=== PATIENT | male | born 1965 | race Caucasian/White ===

== ENCOUNTER 2018-02-24 10:38 | Emergency (ER) | payer MEDICAID, OTHER, SELFPAY ==
[~2018-02-24] VITALS: Ht 175.3 cm; Wt 90.0 kg
[2018-02-24 10:40] VITALS: BP 124/84
== END 2018-02-24 12:17 | disposition home or self-care (01) ==
LOC: ED 12:11
DX: K40.91 Unilateral inguinal hernia, without obstruction or gangrene, recurrent (principal)
CPT/HCPCS: 99283

== ENCOUNTER → 2018-04-03 | Outpatient (CLI) | payer MEDICAID ==
[~2018-04-03] MED LIST: BUPIVACAINE/PF 0.5% ONE; EPINEPHRINE 1 MG/ML, 1ML ONE; None at this Time; VARE1TAB21 PO
== END | disposition home or self-care (01) ==
LOC: STAR 12:22 → MERGE 13:00
PROVIDERS: ATTEND Surgery
DX: Z02.9 Encounter for administrative examinations, unspecified (principal)

== ENCOUNTER 2018-04-11 09:05 | Day surgery (SDC) | payer MEDICAID ==
[~2018-04-11] VITALS: Ht 175.3 cm; Wt 97.0 kg
[~2018-04-11 09:05] MED LIST changes: -BUPIVACAINE/PF 0.5% ONE; -EPINEPHRINE 1 MG/ML, 1ML ONE
[2018-04-11] MEDS ORDERED: LACTATED RINGERS 1,000 ML IV SCH (09:33)
[2018-04-11 09:39] VITALS: BP 131/90
[2018-04-11] MEDS ORDERED: LORazepam 2 MG/ML, 1ML ONE (09:56)
[2018-04-11] MEDS ORDERED: GABAPENTIN 300 MG CAPSULE PO ONE (10:00)
[2018-04-11] MEDS ORDERED: ACETAMINOPHEN 500 MG TABLET PO ONE (10:00)
[2018-04-11] MEDS ORDERED: LORazepam 2 MG/ML, 1ML IVPush ONE (10:00)
[2018-04-11] MEDS ORDERED: FAMOTIDINE 20 MG/2 ML IVPush ONE (10:00)
[2018-04-11] MEDS ORDERED: TAMSULOSIN 0.4 MG CAP.ER.24H PO ONE (10:00)
[2018-04-11] MEDS ORDERED: FENTANYL PF 250 MCG/5ML ONE (10:25)
[2018-04-11] MEDS ORDERED: MIDAZOLAM 1 MG/ML, 2ML ONE (10:25)
[2018-04-11] MEDS ORDERED: ROCURONIUM 10 MG/ML,10ML ONE (11:08)
[2018-04-11] MEDS ORDERED: NEOSTIGMINE 1 MG/ML, 10ML ONE (11:08)
[2018-04-11] MEDS ORDERED: DEXAMETHASONE 4 MG/ML, 1ML ONE (11:08)
[2018-04-11] MEDS ORDERED: CEFAZOLIN 1,000 MG ONE (11:08)
[2018-04-11] MEDS ORDERED: GLYCOPYRROLATE 0.2MG/1ML, 5ML ONE (11:08)
[2018-04-11] MEDS ORDERED: PROPOFOL 10 MG/ML, 20ML ONE (11:08)
[2018-04-11] MEDS ORDERED: ONDANSETRON 2MG/ML, 2ML ONE (11:08)
[2018-04-11] MEDS ORDERED: BUPIVACAINE/PF 0.5% INFIL ONE (11:46)
[2018-04-11] MEDS ORDERED: EPINEPHRINE 1 MG/ML, 1ML INFIL ONE (11:46)
[2018-04-11] MEDS ORDERED: KETOROLAC 30 MG/1 ML ONE (13:29)
[2018-04-11] MEDS ORDERED: OXYcodone 5 MG/5 ML ORAL.SOL UDC ONE (13:29)
[2018-04-11] MEDS ORDERED: KETOROLAC 30 MG/1 ML IVPush PRN (13:30)
[2018-04-11] MEDS ORDERED: ONDANSETRON 2MG/ML, 2ML IVPush PRN (13:30)
[2018-04-11] MEDS ORDERED: DIPHENHYDRAMINE 50 MG/ML, 1ML IVPush PRN (13:30)
[2018-04-11] MEDS ORDERED: HYDROcodone/APAP 5/325 TABLET PO PRN (13:30)
[2018-04-11] MEDS ORDERED: ENOXAPARIN 40 MG/0.4 ML SQ SCH (13:30)
[2018-04-11] MEDS ORDERED: MORPHINE SULFATE 4 MG/ML, 1ML IVPush PRN ×2 (13:30→14:00)
[2018-04-11] MEDS ORDERED: FENTANYL PF 100 MCG/2ML ONE (13:48)
[2018-04-11] MEDS ORDERED: MORPHINE SULFATE 4 MG/ML, 1ML ONE (13:58)
[2018-04-11] MEDS ORDERED: FENTANYL PF 100 MCG/2ML IV PRN (14:00)
[2018-04-11] MEDS ORDERED: PROMETHAZINE 25 MG/ML, 1ML IV PRN (14:00)
[2018-04-11] MEDS ORDERED: ALBUTEROL SULFATE 2.5 MG/3 ML NPPB PRN (14:00)
[2018-04-11] MEDS ORDERED: LORazepam 2 MG/ML, 1ML IVPush PRN (14:00)
[2018-04-11] MEDS ORDERED: LABETALOL 5MG/ML, 20ML IV PRN (14:00)
[2018-04-11] MEDS ORDERED: ACETAMINOPHEN 325 MG TABLET PO PRN (14:00)
[2018-04-11] MEDS ORDERED: MEPERIDINE/PF 25MG/0.5ML IVPush PRN (14:00)
[2018-04-11] MEDS ORDERED: HYDROmorphone 2 MG/ML, 1ML IV PRN (14:00)
[2018-04-11] MEDS ORDERED: OXYcodone 5 MG/5 ML ORAL.SOL UDC PO PRN (14:00)
[2018-04-11] MEDS ORDERED: KETOROLAC 30 MG/1 ML IV PRN (14:00)
[2018-04-11] MEDS ORDERED: hydrALAzine 20 MG/ML, 1ML IV PRN (14:00)
== END 2018-04-11 16:30 | disposition home or self-care (01) ==
LOC: OUT 09:05
PROVIDERS: ATTEND Surgery
DX: K40.91 Unilateral inguinal hernia, without obstruction or gangrene, recurrent (principal); Z72.89 Other problems related to lifestyle; F17.210 Nicotine dependence, cigarettes, uncomplicated; Z79.899 Other long term (current) drug therapy; Z98.890 Other specified postprocedural states
CPT/HCPCS: 49651; C1781; J0171; J0690; J1100; J1885; J2060; J2250; J2405; J2704; J2710; J3010; J3490; J7120; S0028; S2900